=== PATIENT | male | born 1985 | race Two or more races ===

== ENCOUNTER 2024-07-05 14:28 | Emergency (ER) | payer OTHER ==
[2024-07-05 14:39] VITALS: BP 150/75; PULSE 94; RESP 20; TEMP 98.9; BMI 41.8
[2024-07-05] MEDS: ACETAMINOPHEN 500 MG TABLET (FP) PO ONE (16:18)
[2024-07-05] MEDS ORDERED: ACETAMINOPHEN 500 MG TABLET (FP) ONE (17:16)
== END 2024-07-05 20:41 | disposition home or self-care (01) ==
LOC: JERFT 14:28
DX: M79.605 Pain in left leg (principal); M54.6 Pain in thoracic spine; M54.50 Low back pain, unspecified; M54.2 Cervicalgia; M79.89 Other specified soft tissue disorders; G44.309 Post-traumatic headache, unspecified, not intractable; V49.40XA Driver injured in collision with unspecified motor vehicles in traffic accident, initial encounter; Y92.410 Unspecified street and highway as the place of occurrence of the external cause
CPT/HCPCS: 70450-TC; 72070-TC-FY; 72100-TC-FY; 72125-TC; 93971-TC; 99284-25